=== PATIENT | male | born 1970 | race Caucasian/White ===

== ENCOUNTER 2019-09-29 10:34 | Emergency (ER) | payer OTHER, SELFPAY ==
[2019-09-29 10:40] VITALS: BP 154/86; PULSE 90; RESP 20; TEMP 36.6; O2SAT 99
--- NOTE | 2019-09-29 10:47 | ED.UPPEXIN ---
HPI - Extremity Injury (Upper) General Chief Complaint: Extremity Injury, Upper Stated Complaint: left finger injury Time Seen by Provider: 09/29/19 10:47 Source: patient and RN notes reviewed History of Present Illness HPI narrative: Patient is a 49-year-old male that presents the urgent care with complaints of a laceration to the left index finger. 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 Patient states he is not up-to-date on his tetanus. Patient states he did clean his hands prior to arrival. Denies any numbness or tingling to the finger. No other acute complaints. No acute distress noted. Patient aware the plan of care. Related Data Home Medications Medication Instructions Recorded Confirmed atomoxetine 100 mg PO DAILY 09/29/19 09/29/19 dextroamphetamine 10 mg PO DAILY 09/29/19 09/29/19 dextroamphetamine-amphetamine 30 mg PO DAILY 09/29/19 09/29/19 [Adderall XR] sertraline 50 mg PO DAILY 09/29/19 09/29/19 sertraline 100 mg PO DAILY 09/29/19 09/29/19 Allergies Allergy/AdvReac Type Severity Reaction Status Date / Time No Known Allergies Allergy Verified 09/29/19 10:55 Review of Systems Review of Systems: Narrative: CONSTITUTIONAL: Denies fever, chills, or sweats. EYES: Denies visual changes, redness, or discharge. ENT: Denies rhinorrhea, congestion, sore throat, or otalgia. CARDIOVASCULAR: Denies chest pain, palpitations, or edema. RESPIRATORY: Denies cough or dyspnea. GASTROINTESTINAL: Denies abdominal pain, nausea, vomiting, or diarrhea. GENITOURINARY: Denies dysuria or hematuria. SKIN: Reports of a laceration to the left index finger MUSCULOSKELETAL: Denies back pain, joint pain, or myalgia. NEUROLOGIC: Denies headache, numbness, or weakness. All other systems reviewed are negative, except as documented in HPI. [facility] Family History Family History (Updated 03/15/16 @ 23:21 by DOCTOR UNKNOWN) Father Hypertension Family history of arthritis Sibling Patient's sister is in good health Family history of attention deficit hyperactivity disorder (ADHD) Mother Family history of malignant neoplasm of breast in first degree relative Social History Social History Smoking status: Never smoker Second hand tobacco smoke exposure: No Alcohol intake: never Comments At the time of my signature, I reviewed and agree with the nursing past medical, surgical, social, and family history. There is no relevant family history pertinent to the patient complaint. Exam Narrative: Exam Narrative: GENERAL: This is a well-nourished, well-developed patient, in no apparent distress. HEAD: normocephalic, atraumatic. EYES: PERRL. Sclera clear/white. Vision is grossly intact. EARS: External ears normal NOSE: External nose normal with no obvious nasal discharge THROAT: Mucous membranes moist NECK: Neck supple CARDIOVASCULAR: Regular rate and rhythm without murmurs, gallops, or rubs. RESPIRATORY: Clear to auscultation. Breath sounds equal bilaterally. No wheezes, rales, or rhonchi. SKIN: 3 cm linear laceration to the left index finger on the radial aspect. Warm, intact with no suspicious lesions or rash, good texture and turgor. NEURO: awake, alert, and oriented to person, place and time. There were no obvious focal neurologic abnormalities. EXTREMITIES: No clubbing, cyanosis, or edema. No joint tenderness, effusion, or edema noted. No calf tenderness. Negative Homans sign bilaterally. Course Vital Signs Vital signs: Vital Signs Temperature 97.9 F 09/29/19 10:40 Pulse Rate 90 09/29/19 10:40 Respiratory Rate 09/29/19 10:40 Blood Pressure 154/86 H 09/29/19 10:40 Pulse Oximetry 99 09/29/19 10:40 Temperature 97.9 F 09/29/19 10:40 Pulse Rate 90 09/29/19 10:40 Respiratory Rate 09/29/19 10:40 Blood Pressure 154/86 H 09/29/19 10:40 Pulse Oximetry 99 09/29/19 10:40 Reviewed?patient is informed that they may have pre-hypertension
[2019-09-29] MEDS: TETANUS,DIPHTHERIA,AC PERTUSSIS ADULT 0.5 ML (ADACEL) IM (11:12)
== END 2019-09-29 11:35 | disposition home or self-care (01) ==
PROVIDERS: Emergency Provider Nurse Practitioner Family; PCP Internal Medicine
DX: S61.211A Laceration without foreign body of left index finger without damage to nail, initial encounter (principal); W26.8XXA Contact with other sharp object(s), not elsewhere classified, initial encounter; Z23 Encounter for immunization; F90.9 Attention-deficit hyperactivity disorder, unspecified type; F32.9 Major depressive disorder, single episode, unspecified
CPT/HCPCS: 12002; 90471; 90715; 99212; G0463